=== PATIENT | female | born 1970 | race Caucasian/White ===

== ENCOUNTER → 2017-08-11 | Outpatient (CLI) | payer BC ==
[~2017-08-11] MED LIST: AMLO2.5T PO; ARMO120T PO; ASPI81TA81; BIOTCAP PO; DIAZ2TAB PO; IBUP1TAB7 PO; LACTCAP8 PO; LAMI200T PO; LAMO100 PO; LEVO150T7 PO; METO25TA3 PO; MULT-65 PO; PAXI10TA8 PO; PROP10TA6 PO; PROP20TA3 PO
--- NOTE | 2017-08-12 15:19 | EKG ---
Date Performed: 08/11/2017 Time Performed: 13:23:08 PTAGE: 46 years EKG: SINUS BRADYCARDIA LOW QRS VOLTAGE IN PRECORDIAL LEADS BORDERLINE ECG Since the previous tra cing, no significant change noted NO PREVIOUS TRACING DOCTOR: Fernando Lara Interpretating Date/Time 08/12/2017 15:15:02
== END ==
LOC: CPRE 12:56
PROVIDERS: ATTEND Obstetrics & Gynecology
DX: Z01.810 Encounter for preprocedural cardiovascular examination (principal); R10.2 Pelvic and perineal pain; N83.202 Unspecified ovarian cyst, left side; R00.1 Bradycardia, unspecified
CPT/HCPCS: 93005

== ENCOUNTER → 2017-08-13 | Day surgery (SDC) | payer BC ==
--- NOTE | 2017-08-12 13:51 | MH ---
cc: River Riley MD DATE OF ADMISSION: 08/13/2017 DATE OF : 1970 CHIEF COMPLAINT: 1. Pelvic pain. 2. Left ovarian cyst. HISTORY OF PRESENT ILLNESS: This is a 46-year-old white female, para 1-0-1-1, has had intermittent pelvic pain for several months. Ultrasounds have showed enlargement of a left ovarian cyst including the most recent one on 07/11/2017 and she would like to proceed with surgical treatment. PAST MEDICAL HISTORY: PREVIOUS SURGERY: She had cervical disk surgery in 2006 following an accident, back surgery in 2000, bilateral tubal eruption in 1995, ventral hernia repair in 1971. In 2011 she had chest pains, followed by cardiac catheterization in 2012. She had a LASH and bilateral salpingectomy 04/16/2016. MEDICATIONS: Levothyroxine. ALLERGIES: MORPHINE. TRANSFUSIONS: None. OBSTETRIC HISTORY: One vaginal delivery. SOCIAL HISTORY: She is , employed. Alcohol: Occasional. Tobacco: Quit 9 years ago. Drugs: None. FAMILY HISTORY: Noncontributory. PHYSICAL EXAMINATION: GENERAL: She is a well-nourished, well-developed female. VITAL SIGNS: Stable. HEENT: Exam is normal. CHEST: Clear. HEART: Regular rate. BREASTS: Symmetrical. ABDOMEN: Benign. PELVIC EXAM: Vagina is normal. Cervix present. Uterus absent. Left adnexa cystic. RECTAL: Nonpalpable. ASSESSMENT: As above. PLAN: She is now admitted for laparoscopy with planned left oophorectomy, possible BSO, possible bilateral oophorectomy pending findings. The risks and benefits and complications were explained and accepted. The patient would like to proceed. MD [place] Dave/SB , 01:37 PM , 01:50 PM
[~2017-08-13] VITALS: Ht 157.5 cm; Wt 79.3 kg
[~2017-08-13] MED LIST changes: +*MEPERIDINE 25 MG INJ VIAL PERIprocedural Use ONLY ONE; +ACETAMINOPHEN 1000 MG/100 ML 100 ML IV ONE; +APREPITANT 40 MG CAP ONE; +BUPIVACAINE HCL PF 0.25% 30 ML VIAL ONE; +CHLORHEXIDINE GLUCONATE 2 % 1 PACK (2 CLOTHS) TOPICAL PRN; +DEXAMETHASONE SOD PHOS 4 MG/ML VIAL IV ONE; +DO NOT ADM ANY ANTICOAGULANT DRUGS PRN; +GLYCOPYRROLATE 1 MG/5 ML SYRINGE IV PUSH ONE; +KETOROLAC TROMETHAMINE 30 MG/ML (IVP) VIAL IV PUSH ONE; +LACTATED RINGER'S 1000 ML INJ 1,000 ML IV ONE; +LACTATED RINGER'S 1000 ML IV PRN; -LAMO100 PO; -LEVO150T7 PO; +LIDOCAINE 0.5%/EPINEPHrine 1:200,000 SOLN 50 ML VIAL ONE; +LIDOCAINE HCL 1% PF 5 ML SYRINGE OTHER ONE; +METOCLOPRAMIDE HCL 10 MG/2 ML VIAL IV PRN; +METOPROLOL TARTRATE 25 MG TAB PO PRN; +MIDAZOLAM HCL 2 MG/2 ML VIAL ONE; +NEOSTIGMINE 5 MG/5 ML SYRINGE IV PUSH ONE; +ONDANSETRON HCL 4 MG/2 ML VIAL IV ONE; +POVIDONE IODINE 5% (ANTISEPSIS KIT) 4 APPLICATIONS EACH NARE PRN; -PROP20TA3 PO; +PROPOFOL 200 MG/20 ML AMP IV ONE; +ROCURONIUM INJ 50 MG/5 ML SYRINGE IV PUSH ONE; +SODIUM CHLORID 0.9% 500 ML IV PRN; +ceFAZolin 1,000 MG/NS 100 ML IV SCH; +oxyCODONE/ACETAMINOPHEN 5 MG/325 MG TAB PO PRN
--- NOTE | 2017-08-13 08:34 | MP ---
cc: River Riley MD DATE OF OPERATION: 08/13/2017 PREOPERATIVE DIAGNOSES: Pelvic pain, left ovarian cyst. POSTOPERATIVE DIAGNOSES: Pelvic pain, left ovarian cyst. PROCEDURE PERFORMED: Laparoscopy with a left oophorectomy. ANESTHESIA: General, ET. SURGEON: River Riley MD VACUUM TECHNICIAN: Ibis Rich. ESTIMATED BLOOD LOSS: Less than 10 ccs. FLUIDS: 1100 mL crystalloid. OBJECTIVE FINDINGS: Following induction of adequate general endotracheal anesthesia, the patient was prepped and draped supine on the operating table in the usual sterile fashion, with the bladder being drained by Ruffin catheterization. The abdomen was opened through a 0.5 cm infraumbilical incision. A 5 port was placed. The laparoscope was attached to a video-cam . A second port 02/06 was placed in the right upper quadrant and a 5 in the right lower quadrant. The pelvis was very clear. The uterus was absent. Tubes were absent. Right ovary was normal. Left was cystic about 4 cm. The Harmonic scalpel was now used to take the left ovarian pedicle and lyse adhesions and the ovary extracted in the pouch. Irrigation was now performed. A low pressure test was done. There was no bleeding. The large port were removed. The fascia was sutured with interrupted sutures of 2-0 Vicryl with good closure and no bleeding. The operative site was now coated with Surgicel powder hemostatic agent and the ureter inspected for good peristalsis. The scope was now removed. The small ports were removed and the incisions injected with a total of 15 mL of lidocaine 1% with epinephrine. The skin at the left lower quadrant port was closed with a running 3-0 Monocryl subcuticular and the 5 ports with interrupted subcuticular 3-0 Monocryl. Sterile dressing was applied. All counts were correct and the patient was awakened and taken to the recovery room in good condition. River Riley MD JAW/TL , 08:15 AM , 08:33 AM
[2017-08-13 11:45] VITALS: BP 107/75; PULSE 61; RESP 20; TEMP 97.6; O2SAT 97
== END | disposition home or self-care (01) ==
LOC: HSDC 05:32
PROVIDERS: ATTEND Obstetrics & Gynecology
DX: N83.202 Unspecified ovarian cyst, left side (principal); I10 Essential (primary) hypertension
CPT/HCPCS: 00840; 58661; 88305; J0131; J0690; J1100; J1885; J2175; J2250; J2405; J2710; J2765; J3010; J7120; J8501